=== PATIENT | male | born 1990 | race Caucasian/White ===

== ENCOUNTER 2019-05-12 20:02 | Emergency (ER) | payer OTHER, SELFPAY ==
[2019-05-12 20:04] VITALS: BP 156/78; PULSE 100; RESP 16; RESP 19; TEMP 36.4; O2SAT 100; BMI 29.5
--- NOTE | 2019-05-12 20:48 | ED.RN ---
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
--- NOTE | 2019-05-12 21:30 | ED.VIS.GEN ---
History of Present Illness Chief Complaint: Occup Expose Detail of Chief Complaint: Body fluid exposure Informant: Patient Onset: Today Current Severity: Mild Maximum Severity: Mild Narrative: Patient presents status post body fluid exposure. 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 He got splashed with bloody sputum in his right eye. Patient being transported is known to have history of hepatitis C. Patient states he was wearing his contacts at the time. He did take his contacts out and threw them away. He did irrigate his eyes prior to evaluation. He denies any eye pain or complaints. Past Medical History - Allergies and Home Meds Allergies/Adverse Reactions: Allergies No Known Allergies Allergy (Verified 05/12/19 20:03) Primary Care Physician: KASANDRA SLAUGHTER [[facility]] - 3-5 Days Prior records reviewed: Yes Past Medical History: - - Reviewed Smoking Status: Never smoker Review of Systems General: Denies: Chills, Fever Eyes: Denies: Visual changes - bilaterally ENT: Denies: Bilateral ear pain Cardiovascular: Denies: Chest pain Respiratory: Denies: Dyspnea, Cough Gastrointestinal: Denies: Abdominal pain, Nausea, Vomiting, Diarrhea Skin: Denies: Rash Neurological: Denies: Headache Hematologic: Denies: Easy bruising Allergy: Denies: Uticaria Physical Exam Vital Signs/Narrative: Vital Signs Temp Pulse Resp BP Pulse Ox 05/12/19 20:04 97.6 F L 100 16 156/78 H 100 Inital Vital Signs reviewed: Yes General: Well nourished, Well developed Head: Normocephalic, Atraumatic Eyes: Perrl, EOMI Neck: Supple Cardiovascular: Regular rate, Regular rhythm Respiratory: No distress, CTA bilaterally Abdomen: Soft, Nontender Extremities: Nontender Skin: Normal color Neurological: Alert, Oriented x3 Psychological: Normal affect Diagnostic/Tx/Re-eval - Medical Decision Making Exposure labs were drawn. Patient received tetracaine drops to the right eye and right eye was irrigated with a liter fluid. Patient will follow-up with [facility] ED Disposition - Plan for ED Patient: Disposition: Home or Assisted Living Diagnosis: Exposure to blood or body fluid Instructions: BODY FLUID EXPOSURE, Health Care Worker Referrals: [facility]] - 3-5 Days
[2019-05-12 21:44] VITALS: RESP 16
[2019-05-13 03:31] LABS: HIV - WCH Non-Reactive (Nonreactive); Hepatitis B Surface Antibody Reactive; Hepatitis B Surface Antigen Non-Reactive (Nonreactive); Hepatitis C Antibody Non-Reactive (Nonreactive)
== END 2019-05-12 21:45 | disposition home or self-care (01) ==
PROVIDERS: Emergency Provider Emergency Medicine; Family Provider Nurse Practitioner Family; PCP Nurse Practitioner Family
DX: Z77.21 Contact with and (suspected) exposure to potentially hazardous body fluids (principal); Z20.5 Contact with and (suspected) exposure to viral hepatitis; T75.89XA Other specified effects of external causes, initial encounter; X58.XXXA Exposure to other specified factors, initial encounter; Y93.F9 Activity, other caregiving; Y99.0 Civilian activity done for income or pay
CPT/HCPCS: 86703; 86706; 86803; 87340; 99284; J7030

== ENCOUNTER → 2021-03-09 16:07 | Outpatient (CLI) | payer OTHER, SELFPAY ==
[2021-03-09 18:32] LABS: Thyroid Stim Hormone (TSH) 0.61 uIU/mL (0.358-3.74)
== END ==
PROVIDERS: PCP Family Medicine; Referring Provider Family Medicine; Visit Provider Family Medicine
DX: F90.0 Attention-deficit hyperactivity disorder, predominantly inattentive type (principal)
CPT/HCPCS: 36415; 84443

== ENCOUNTER → 2023-06-29 | Outpatient (CLI) | payer OTHER, SELFPAY ==
[2023-06-29 10:17] LABS: Absolute Lymphocyte Count 1.59 X10^3/uL (0.83-4.51); Absolute Neutrophil Count 2.7 X10^3/uL (2.0-7.7); Eosinophil# 0.15 X10^3/uL; Eosinophils% 3.1 % (0-5); Hematocrit 43.5 % (40-54); Hemoglobin 13.9 g/dL (13.0-16.5); Lymphocyte # 1.59 X10^3/ul (0.83-4.51); Lymphocyte % 33.3 % (19-41); Mean Corpuscular Hgb 27.5 pg (27.0-32.0); Mean Corpuscular Volume 86.1 fL (80-94); Monocyte# 0.28 X10^3/uL; Monocyte% 5.9 % (0-10); NRBC Flagged by Analyzer 0 % (0-5); Neutrophil # 2.74 X10^3/uL (2.7-7.7); Neutrophil % 57.5 % (47-70); Platelet Count 260 K/mm3 (150-450); RBC Distribution Width CV 13.6 % (11.6-14.6); Red Blood Count 5.05 M/mm3 (4.6-6.2); White Blood Count 4.8 K/mm3 (4.4-11.0)
[2023-06-29 10:27] LABS: ALB/GLOB Ratio 1.5 RATIO (0.9-2.4); AST(SGOT) 38 U/L (15-37); Alanine Aminotransfer ALT/SGPT 35 U/L (16-61); Alkaline Phosphatase 129 U/L (45-117); Anion Gap 3 (5-15); BUN 17 mg/dL (7-18); BUN/Creat Ratio 18.1 RATIO (10-20); Chloride 107 mmol/L (98-107); Creatinine, Serum 0.94 mg/dL (0.70-1.30); EST Glomerular Filtration Rate 99 mL/min (>60); Est Glom Filt Rate - Afr Amer 120 mL/min (>60); Globulin 2.7 g/dL (2.2-4.2); Glucose 62 mg/dL (74-106); Potassium 4.2 mmol/L (3.5-5.1); Protein, Total 6.7 g/dL (6.4-8.2); Sodium Level 142 mmol/L (136-145)
[2023-07-08 17:07] LABS: Testosterone, % Free 2.63 % (1.50-4.20); Testosterone, Free 10.65 ng/dL (5.00-21.00); Testosterone, Total 405 ng/dL (264-916)
== END | disposition home or self-care (01) ==
PROVIDERS: PCP Nurse Practitioner Family; Referring Provider Nurse Practitioner Family; Visit Provider Nurse Practitioner Family
DX: N52.9 Male erectile dysfunction, unspecified (principal)
CPT/HCPCS: 36415; 80053; 84402; 84403; 85025

== ENCOUNTER 2024-05-17 14:50 | Emergency (ER) | payer OTHER, SELFPAY ==
[2024-05-17 14:52] VITALS: BP 126/90; PULSE 78; RESP 18; TEMP 36.2; O2SAT 100; BMI 31.1
[2024-05-17] MEDS: Tetracaine 0.5% Ophthalmic Bottle 1 DRP RIGHT EYE (15:14)
[2024-05-17] MEDS: Fluorescein 1 MG STRIP 1 STRIP RIGHT EYE (15:14)
[2024-05-17 16:24] VITALS: BP 128/98; PULSE 75; RESP 18; TEMP 36.6; O2SAT 99
== END 2024-05-17 16:31 | disposition home or self-care (01) ==
PROVIDERS: Emergency Provider Emergency Medicine; PCP Nurse Practitioner Family; Referring Provider Emergency Medicine; Visit Provider Emergency Medicine
DX: T15.01XA Foreign body in cornea, right eye, initial encounter (principal); X58.XXXA Exposure to other specified factors, initial encounter
CPT/HCPCS: 99283

== ENCOUNTER → 2024-12-02 | Outpatient (CLI) | payer OTHER, SELFPAY ==
[2024-12-02 12:42] LABS: Absolute Lymphocyte Count 1.24 X10^3/uL (0.83-4.51); Basophil# 0.01 X10^3/uL; Basophil% 0.2 % (0-1); Eosinophil# 0.13 X10^3/uL; Eosinophils% 2.7 % (0-5); Hematocrit 42.3 % (40-54); Hemoglobin 13.9 g/dL (13.0-16.5); Lymphocyte # 1.24 X10^3/ul (0.83-4.51); Lymphocyte % 25.8 % (19-41); Mean Corp Hgb Conc 32.9 g/dL (32-36); Mean Corpuscular Volume 85.3 fL (80-94); Mean Platelet Vol. 9.3 fl (6.2-12.0); Monocyte# 0.47 X10^3/uL; Monocyte% 9.8 % (0-10); NRBC Flagged by Analyzer 0 % (0-5); Neutrophil # 2.95 X10^3/uL (2.7-7.7); Neutrophil % 61.3 % (47-70); Platelet Count 236 K/mm3 (150-450); RBC Distribution Width CV 13.2 % (11.6-14.6); RBC Distribution Width SD 40.9 fl (35.1-43.9); Red Blood Count 4.96 M/mm3 (4.6-6.2); White Blood Count 4.8 K/mm3 (4.4-11.0)
[2024-12-02 12:52] LABS: Color, Urine Yellow (Yellow); Glucose, Dipstick Normal (Normal); Ketone-Dipstick Negative (Negative); Leukocyte Esterase-Dipstick Negative /ul (Negative); Nitrite-Dipstick Negative (Negative); Occult Blood-Urine Negative /ul (Negative); Protein-Dipstick 15 mg/dl (Negative); Specific Gravity, Urine 1.015 (1.002-1.030); Urine Bilirubin Dipstick Negative (Negative); Urine Clarity Clear (Clear); Urine Urobilinogen Normal (Normal)
[2024-12-02 13:11] LABS: Hemoglobin A1c 5.6 % (<=5.6)
[2024-12-02 13:34] LABS: ALB/GLOB Ratio 1.9 RATIO (0.9-2.4); AST(SGOT) 32 U/L (<=37); Alanine Aminotransfer ALT/SGPT 33 U/L (<=46); Albumin, Serum 4.3 g/dL (3.5-5.0); Alkaline Phosphatase 147 U/L (40-129); Anion Gap 10 (5-15); BUN 16 mg/dL (4-19); Calcium,Total 9.7 mg/dL (7.6-11.0); Chloride 104 mmol/L (98-108); Cholesterol 146 mg/dL (<=200); Creatinine, Serum 1.14 mg/dL (0.70-1.20); EST Glomerular Filtration Rate 87 (>60); Globulin 2.3 g/dL (2.2-4.2); Glucose 74 mg/dL (70-99); High Density Lipoprotein 51 mg/dL; Low Density Lipoprotein Calc. 81 mg/dL; Potassium 4.4 mmol/L (3.3-5.1); Protein, Total 6.7 g/dL (5.9-8.4); Sodium Level 140 mmol/L (133-145); Thyroid Stim Hormone (TSH) 0.703 uIU/mL (0.300-4.200); Total Bilirubin 0.31 mg/dL (0.00-1.30); Triglycerides 71 mg/dL; Very Low Density Lipoprotein 14 mg/dL (5-40); Vitamin B12 673 pg/mL (180-914); Vitamin D,25 Hydroxy 24.9 ng/mL (30-100); cholesterol:hdl ratio screen 2.88
== END | disposition home or self-care (01) ==
LOC: VSLAB 11:25
DX: Z13.1 Encounter for screening for diabetes mellitus (principal); Z13.220 Encounter for screening for lipoid disorders; R53.83 Other fatigue
CPT/HCPCS: 36415; 80053; 80061; 81002; 82306; 82607; 83036; 84443; 85025

== ENCOUNTER → 2025-01-15 | Outpatient (CLI) | payer OTHER, SELFPAY | END | disposition home or self-care (01) | LOC: SL 13:04 | DX: G47.10 Hypersomnia, unspecified (principal) | CPT/HCPCS: 95806 ==